=== PATIENT | female | born 1975 | race Caucasian/White ===

== ENCOUNTER 2017-08-04 10:07 | Outpatient (CLI) | payer OTHER | END 2017-08-04 10:08 | disposition home or self-care (01) | LOC: BICMAMMO 10:07 | PROVIDERS: ATTEND Obstetrics & Gynecology | DX: Z12.31 Encounter for screening mammogram for malignant neoplasm of breast (principal); Z80.3 Family history of malignant neoplasm of breast | CPT/HCPCS: 77063 ==

== ENCOUNTER 2017-09-15 13:48 | Outpatient (CLI) | payer BC | END 2017-09-15 13:49 | disposition home or self-care (01) | LOC: BICMAMMO 13:48 | PROVIDERS: ATTEND Obstetrics & Gynecology | DX: N63.10 Unspecified lump in the right breast, unspecified quadrant (principal); Z80.3 Family history of malignant neoplasm of breast | CPT/HCPCS: G0206-RT; G0279 ==

== ENCOUNTER 2022-01-31 07:50 | Outpatient (CLI) | payer OTHER | END 2022-01-31 07:51 | disposition home or self-care (01) | LOC: BICCT 07:50 | PROVIDERS: ATTEND Family Medicine | DX: R51.9 Headache, unspecified (principal); R90.89 Other abnormal findings on diagnostic imaging of central nervous system | CPT/HCPCS: 70470 ==

== ENCOUNTER 2022-02-21 08:32 | Outpatient (CLI) | payer OTHER ==
[2022-02-21] MEDS ORDERED: Magnevist 469MG/ML 20 ML VIAL ONE (14:00)
== END 2022-02-21 08:33 | disposition home or self-care (01) ==
LOC: BICMRI 08:32
PROVIDERS: ATTEND Family Medicine
DX: R90.89 Other abnormal findings on diagnostic imaging of central nervous system (principal)
CPT/HCPCS: 70553; A9579

== ENCOUNTER 2022-03-25 06:56 | Day surgery (SDC) | payer OTHER ==
[2022-03-23 14:00] VITALS: BMI 38.3
[2022-03-25 07:45] VITALS: BP 134/79; TEMP 98.3
[2022-03-25 09:38] LABS: CSF, Glucose 57 mg/dl (40-70); CSF, Protein 67 mg/dL (15-40)
[2022-03-25 09:52] LABS: Color Of CSF Supernatant COLORLESS (Colorless); Unspun CSF Color COLORLESS (Colorless)
[2022-03-25 09:53] LABS: Tube # 1
[2022-03-25 11:23] LABS: CSF Source CSF; Clarity Hazy (Clear); Tube # 4
[2022-03-25 11:25] LABS: Cell Count Non Hematic 3 %; Eosinophils 1 %; Lymphocytes 34 %; Segmented Neutrophils 62 %
== END 2022-03-25 09:26 | disposition home or self-care (01) ==
LOC: RAD 06:56
PROVIDERS: ATTEND Psychiatry & Neurology Neurology
PROC: 009U3ZZ Drainage of Spinal Canal, Percutaneous Approach (ICD-10-PCS; principal; 2022-03-25)
DX: R93.0 Abnormal findings on diagnostic imaging of skull and head, not elsewhere classified (principal)
CPT/HCPCS: 36415; 62270; 82040; 82042; 82784; 82945; 83916; 84157; 85060; 89051

== ENCOUNTER 2022-05-06 07:58 | Outpatient (CLI) | payer OTHER | END 2022-05-06 07:59 | disposition home or self-care (01) | LOC: BICMAMMO 07:58 | PROVIDERS: ATTEND Obstetrics & Gynecology | DX: Z12.31 Encounter for screening mammogram for malignant neoplasm of breast (principal) | CPT/HCPCS: 77063; 77067 ==

== ENCOUNTER 2022-10-07 12:33 | Outpatient (CLI) | payer OTHER | END 2022-10-07 12:34 | disposition home or self-care (01) | LOC: SCSMRI 12:33 | PROVIDERS: ATTEND Psychiatry & Neurology Neurology | DX: R93.0 Abnormal findings on diagnostic imaging of skull and head, not elsewhere classified (principal); R90.89 Other abnormal findings on diagnostic imaging of central nervous system; M47.812 Spondylosis without myelopathy or radiculopathy, cervical region; M50.21 Other cervical disc displacement, high cervical region | CPT/HCPCS: 70553; 72156; 72157 ==

== ENCOUNTER 2023-10-20 15:50 | Outpatient (CLI) | payer OTHER | END 2023-10-20 15:51 | disposition home or self-care (01) | LOC: BICMAMMO 15:50 | PROVIDERS: ATTEND Obstetrics & Gynecology | DX: Z12.31 Encounter for screening mammogram for malignant neoplasm of breast (principal); N63.11 Unspecified lump in the right breast, upper outer quadrant; Z80.3 Family history of malignant neoplasm of breast | CPT/HCPCS: 77063; 77067 ==

== ENCOUNTER 2023-11-07 15:23 | Outpatient (CLI) | payer OTHER | END 2023-11-07 15:24 | disposition home or self-care (01) | LOC: BICMAMMO 15:23 | PROVIDERS: ATTEND Obstetrics & Gynecology | DX: N63.11 Unspecified lump in the right breast, upper outer quadrant (principal); N60.02 Solitary cyst of left breast; N60.01 Solitary cyst of right breast | CPT/HCPCS: G0279 ==

== ENCOUNTER 2024-01-04 08:43 | Outpatient (CLI) | payer BC, OTHER | END 2024-01-04 08:44 | disposition home or self-care (01) | LOC: BICMRI 08:43 | PROVIDERS: ATTEND Psychiatry & Neurology Neurology | DX: G35 Multiple sclerosis (principal) | CPT/HCPCS: 70553 ==